=== PATIENT | female | born 1965 | race Caucasian/White ===

== ENCOUNTER → 2019-08-01 | Outpatient (CLI) | payer BC ==
[2019-08-01 14:12] VITALS: BP 112/50; PULSE 97; RESP 16; TEMP 97.8; BMI 26.2
--- NOTE | 2019-08-01 14:47 | P.GSHP ---
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 The patient had a recent bilateral mammogram performed at [facility] on [id number]. Following this she underwent a left breast ultrasound of a portion of the left breast. The portion that was done in the 3 o'clock position 5 cm from the nipple a scar area was identified from previous surgery there was some heterogeneous tissue in this region. A small intramammary node at the 3 o'clock position 2 cm from the nipple was noted measuring 4 mm in size. In the 4:00 area 3 cm from the nipple was a small hypoechoic area thought to represent a complex cystic change. At the 5 o'clock position 3 cm from the nipple a small hypoechoic area thought to represent a complex cystic change was identified. In the 12 o'clock position 4 cm from the nipple were multiple small hypoechoic areas probably complex cystic change. There is some nondilated ducts identified in the 12:00 retroareolar position. This was a BIRADS 3 probably benign and short interval follow-up was suggested. Six-month short-term follow-up exam of the left by ultrasound was suggested. No report on the right breast on the bilateral mammogram was given. The patient has had a prior open biopsy of a noncancerous lesion of the left breast about three years ago. The patient has not noted any new changes in her breasts. The patient does not feel any swollen lymph nodes. The patient is not complaining of any nipple discharge or skin changes. The patient complains of left breast pain laterally near old scar tissue. The pain is intermittent with no cyclical pattern. It does not spread any place. The scars on the left chest wall/ breast are related to the thymic surgery and coronary artery bypass surgery (related to radiation and chemotherapy), and a breast lump removed. She drinks several drinks of coffee/day. She does not smoke and is not exposed to second hand smoke. She does not eat chocolate regularly. The patient uses an estrogen patch, (Vivelle Dot) 0.35 mg twice a week. She also uses a vaginal pill hormone (estrogen tablet) called Imvexxy. Family History: 1. patient: thymic lymphoma 2. sister: kidney cancer 3. maternal aunt: lung cancer Hormonal History: menarche: 11 [place] at 40 menopause: hysterectomy for bleeding at 49,took overies BCP: 15 years hormones: 6 years Surgical History: 1. hysterectomy 2. Thoracotomy for thymic lymphoma 3. Coronary artery bypass 4. Left breast biopsy Past Medical History: 1. Autonomic dysfunction related to prior surgeries and radiation 2. coranary artery disease 3. anxiety/depression 4. hypothyroid 5. Fibromyalgia 6. Neuropathy Social History: smoke: stopped 30 years ago alcohol: occasional drugs: none - Constitutional Comment: menopausal Constitutional: Reports sweats - EENT Eyes: denies blurred vision, denies pain Ears: bilateral: tinnitus (periodic), deny: decreased hearing - Breasts Breasts: bilateral: as per HPI - Cardiovascular Comment: Coronary artery disease - Respiratory Respiratory: Denies cough, Denies 7 - Gastrointestinal Gastrointestinal: Denies abdominal pain, Denies diarrhea, Denies nausea, Denies vomiting - Genitourinary (Female) Genitourinary: Denies dysuria, Denies hematuria - Menstruation Menstruation: Reports postmenopausal - Musculoskeletal Musculoskeletal: Reports myalgias - Integumentary Integumentary: Denies pruritus, Denies rash - Neurological Neurological: Reports numbness, Denies weakness - Psychiatric Psychiatric: Reports anxiety, Reports depression - Endocrine Comment: hypothyroid Endocrine: Reports fatigue - Hematologic/Lymphatic Comment: none - Allergic/Immunologic Allergic/Immunologic: Reports seasonal allergies Medications and Allergies Home Medications Medication Instructions Recorded Confirmed Type ALPRAZolam [Xanax] 1 mg PO HS 08/01/19 08/01/19 History DULoxetine HCL [Cymbalta] 30 mg PO DAILY 08/01/19 08/01/19 History Dextroamphetamine/Amphetamine 10 mg PO QAM 08/01/19 08/01/19 History [Adderall Xr] Levothyroxine Sodium [Synthroid] 0.75 mcg PO DAILY 08/01/19 08/01/19 History Montelukast [Singulair] 10 mg PO DAILY 08/01/19 08/01/19 History Sertraline HCl [Zoloft] 100 mg PO DAILY 08/01/19 08/01/19 History Zolpidem Tartrate [Ambien Cr] 12.5 mg PO HS PRN 08/01/19 08/01/19 History buPROPion HCL [Wellbutrin SR] 150 mg PO DAILY 08/01/19 08/01/19 History Allergies Allergy/AdvReac Type Severity Reaction Status Date / Time vancomycin Allergy Severe Rash/Hives Unverified 08/01/19 13:56 cephalexin [From Keflex] Allergy Mild Anaphylaxis Unverified 08/01/19 13:56 IV Contrast Allergy Rash/Hives Uncoded 08/01/19 13:56 Surgical - Exam BMI 26.3 - General well developed, well nourished, no distress - Eyes normal ocular movement, no icteric - ENT no hearing loss, no congestion - Neck no masses, trachea midline - Respiratory normal respiratory effort, clear to auscultation - Cardiovascular Rhythm: regular Heart Sounds: normal: S1, S2 - Abdomen Abdomen: soft, non tender, no guarding, no rigid, no rebound - Integumentary normal turgor - Musculoskeletal normal gait, normal posture - Psychiatric oriented to time, oriented to person, oriented to place, speech is normal, memory intact breast exam: Right breast: Multi-positional exam no dominant masses or nodules of concern Right axilla: No adenopathy of concern Left breast: Multi-positional exam fibrocystic changes, patient of scar tissue in the lateral aspect of the left breast has multiple scars from prior surgeries including coronary artery bypass, thymic resection, and breast biopsy Left axilla: No adenopathy of concern Results Mammogram and ultrasound report reviewed from [facility], there is no comment regarding the right breast Assessment and Plan Assessment: Impression: 1. Abnormal mammogram 2. Abnormal ultrasound 3. Prior left breast biopsy with scar tissue in the left breast 4. Fibromyalgia 5. Mastodynia 6. Coronary artery disease 7. Autonomic dysfunction 8. Neuropathy 9. Hypothyroid 10. Fibrocystic breast changes 11. Family history of cancer 12. I do not find any lesions on breast exam that I am concerned about on clinical exam there is nothing radiographically reported of concern in the left breast at this time, no palpable lesions of concern in the right breast, we knew the actual radiographs from [facility] to review as is nothing dictated regarding the right breast. I had a discussion with the patient regarding the breast changes. At this time she does not have any abnormal adenopathy to make me concerned about lymphoma. However she has had multiple procedures in the lateral aspect of the left breast and is concerned about any lesions of the left breast. We could further evaluate the breast with an MRI. Additionally the report on the mammogram from [facility] does not mention the right breast and we need to have those films available for review. She was also expressed a concern to obtain a PET/CT secondary to her thymic lymphoma. She is not following with anyone at the present time. Plan: 1. Bilateral breast MRI as a baseline secondary to extensive scar tissue in the left breast 2. Obtain reports from the right breast mammogram and radiographs from [facility] to review the films 3. Reassurance that nothing is palpable in the left breast however it is difficult to examine secondary to the extensive scar tissue 4. PET/CT as per medical oncology secondary to prior thymic lymphoma 5. Medical management of medical conditions 6. Repeat left breast ultrasound in 6 months with an exam CC: DR. Jones, DR. Boyer at [facility] [place]
== END | disposition home or self-care (01) ==
LOC: WWCWWP 13:42
PROVIDERS: ATTEND Surgery
DX: Z53.9 Procedure and treatment not carried out, unspecified reason (principal)